=== PATIENT | female | born 1990 | race Caucasian/White ===

== ENCOUNTER 2017-11-11 11:27 | Day surgery (SDC) | payer OTHER ==
[2017-11-11] MEDS: NS 1,000 ML IV (11:41)
[2017-11-11] MEDS ORDERED: fentaNYL 100 MCG/2 ML INJECTION (J3010) As Ordered (12:37)
[2017-11-11] MEDS ORDERED: PROPOFOL 200 MG/20 ML VIAL As Ordered (12:43)
[2017-11-11] MEDS ORDERED: LIDOCAINE 2% INJ 100 MG/5 ML SDV (FOR ANES.) As Ordered (12:44)
== END 2017-11-11 13:24 | disposition home or self-care (01) ==
LOC: M OPP 11:27
DX: K21.9 Gastro-esophageal reflux disease without esophagitis (principal); R10.13 Epigastric pain; K22.8 Other specified diseases of esophagus; K44.9 Diaphragmatic hernia without obstruction or gangrene; K31.89 Other diseases of stomach and duodenum; D64.9 Anemia, unspecified; G43.909 Migraine, unspecified, not intractable, without status migrainosus; F32.9 Major depressive disorder, single episode, unspecified; F41.9 Anxiety disorder, unspecified; Z88.1 Allergy status to other antibiotic agents; Z79.899 Other long term (current) drug therapy
CPT/HCPCS: 43239

== ENCOUNTER 2018-03-14 11:10 | Emergency (ER) | payer OTHER ==
[2018-03-14] MEDS: LORazepam 2 MG TAB PO (11:53)
[2018-03-14] MEDS: ONDANSETRON 4 MG ORAL DISINTEGRATING TAB (Q0162 PER 1MG) PO (13:11)
[2018-03-14] MEDS: ACETAMINOPHEN TAB 650MG DOSE (2X325MG) PO (13:11)
== END 2018-03-14 13:30 | disposition home or self-care (01) ==
LOC: M ED 11:10
DX: F41.9 Anxiety disorder, unspecified (principal); F32.9 Major depressive disorder, single episode, unspecified; Z79.899 Other long term (current) drug therapy; Z88.1 Allergy status to other antibiotic agents
CPT/HCPCS: Q0162

== ENCOUNTER 2018-03-18 15:31 | Emergency (ER) | payer OTHER ==
[2018-03-18] MEDS: METOCLOPRAMIDE 10 MG TAB PO (17:34)
[2018-03-18] MEDS: ALPRAZolam 0.5 MG TAB PO (17:37)
== END 2018-03-18 19:29 | disposition home or self-care (01) ==
LOC: M ED 15:31
DX: F41.1 Generalized anxiety disorder (principal); Z88.1 Allergy status to other antibiotic agents; Z79.899 Other long term (current) drug therapy
CPT/HCPCS: 99283

== ENCOUNTER 2018-07-17 09:41 | Emergency (ER) | payer OTHER ==
[2018-07-17] MEDS: METOCLOPRAMIDE INJ 10MG/2ML VIAL (J2765) IV (10:44)
[2018-07-17] MEDS: NS 1,000 ML IV (10:44)
[2018-07-17] MEDS: MORPHINE 4 MG/ML 1ML VIAL/SYRINGE (J2270) IV (10:46)
[2018-07-17 10:54] LABS: HEMATOCRIT 31.7 % (36.0-47.0); HEMOGLOBIN 9.9 g/dl (12.0-15.5); MEAN CORPUSCULAR HEMOGLOBIN 23.6 pg (27.0-33.0); MEAN CORPUSCULAR HGB CONC 31.2 g/dl (32.0-36.5); MEAN CORPUSCULAR VOLUME 75.5 fl (80.0-96.0); PLATELET COUNT, AUTOMATED 383 10^3/uL (150-450); RED CELL DISTRIBUTION WIDTH 14.9 % (11.5-14.5); WHITE BLOOD COUNT 10.7 10^3/uL (4.0-10.0)
[2018-07-17] MEDS: HYDROMORPHONE HCL 0.5 MG/ 0.5 ML SYRINGE (J1170 PER 1) IV ×2 (11:18→13:30)
[2018-07-17 11:23] LABS: ANION GAP 6 MEQ/L (8-16); BLOOD UREA NITROGEN 8 MG/DL (7-18); CALCIUM LEVEL 8.8 MG/DL (8.5-10.1); CARBON DIOXIDE LEVEL 30 MEQ/L (21-32); CHLORIDE LEVEL 103 MEQ/L (98-107); CREATININE FOR GFR 0.78 MG/DL (0.55-1.30); GLOMERULAR FILTRATION RATE > 60.0 (>60); GLUCOSE, FASTING 82 MG/DL (70-100); POTASSIUM SERUM 3.9 MEQ/L (3.5-5.1); SODIUM LEVEL 139 MEQ/L (136-145)
[2018-07-17] MEDS ORDERED: ISOVUE-370 76% 100ML VIAL (Q9967) As Ordered (11:29)
[2018-07-17] MEDS: AMPICILLIN SOD/SULBACTAM SOD 3 GM in D5W MINI-BAG PLUS 100 ML IV (12:45)
== END 2018-07-17 14:16 | disposition home or self-care (01) ==
LOC: M ED 09:41
DX: K04.7 Periapical abscess without sinus (principal); Z79.899 Other long term (current) drug therapy; Z88.1 Allergy status to other antibiotic agents
CPT/HCPCS: J2270

== ENCOUNTER → 2018-11-25 | Outpatient (REF) | payer OTHER ==
[~2018-11-25] MED LIST: AUGM875T28 PO; BUSP15TA47 PO; OMEP40CA2 PO; PANT40TA3; PENI500T PO; PERC5TAB12 PO; TRAZ-163 PO; XANA0.25 PO; ZOLO25TA PO
[2018-11-25 12:30] LABS: FREE T4 1.67 NG/DL (0.76-1.46); THYROID STIMULATING HORMONE 0.006 uIU/ML (0.358-3.740); TOTAL T3 179.3 NG/DL (60.0-181.0)
== END ==
LOC: M LABDRAW1 11:43
PROVIDERS: ATTEND Nurse Practitioner Family
DX: E05.00 Thyrotoxicosis with diffuse goiter without thyrotoxic crisis or storm (principal)

== ENCOUNTER → 2018-12-17 | Outpatient (CLI) | payer OTHER ==
--- NOTE | 2018-12-18 18:48 | REP ---
Radionuclide thyroid scan: The thyroid right lobe measures 5.3 cm craniocaudad and is enlarged. The thyroid left lobe measures 4.18 cm craniocaudad and is upper normal size. There are no focal hot or cold foci . Thyroid uptake: The 24 are thyroid uptake is 36.87%. An normal 24 uptake is 25% - 35%. Electronically Signed by Chaz Hamm MD 12/18/2018 06:40 P
== END ==
LOC: M RAD 12:51
PROVIDERS: ATTEND Nurse Practitioner Family
DX: E05.00 Thyrotoxicosis with diffuse goiter without thyrotoxic crisis or storm (principal)

== ENCOUNTER 2018-12-28 12:32 | Day surgery (SDC) | payer OTHER ==
[~2018-12-28] VITALS: Ht 10.2 cm; Wt 122.5 kg
[2018-12-28] MEDS ORDERED: LIDOCAINE 2% INJ 100 MG/5 ML SDV (FOR ANES.) As Ordered ONE ×2 (12:53→13:37)
[2018-12-28] MEDS ORDERED: PROPOFOL 200 MG/20 ML VIAL As Ordered ONE ×2 (12:53→13:37)
[2018-12-28] MEDS ORDERED: NS 1,000 ML IV ONE (13:00)
--- NOTE | 2018-12-28 13:50 | ROOR ---
Patient Name: Nicki Zuniga Procedure Date: 12/28/2018 1:17 PM Date of : 1990 Age: 28 Room: [facility] Gender: Female Note Status: Finalized Procedure: Upper GI endoscopy Indications: Surveillance for malignancy due to personal history of Kc's esophagus Providers: Zachariah Arce MD Referring MD: ALLYN MORELAND MD Requesting Provider: Medicines: Monitored Anesthesia Care Complications: No immediate complications. Procedure: Pre-Anesthesia Assessment: - Prior to the procedure, a History and Physical was performed, and patient medications and allergies were reviewed. The patient is competent. The risks and benefits of the procedure and the sedation options and risks were discussed with the patient. All questions were answered and informed consent was obtained. Patient identification and proposed procedure were verified by the physician, the nurse and the anesthesiologist in the procedure room. Mental Status Examination: alert and oriented. Airway Examination: normal oropharyngeal airway and neck mobility. Respiratory Examination: clear to auscultation. CV Examination: normal. Prophylactic Antibiotics: The patient does not require prophylactic antibiotics. Prior Anticoagulants: The patient has taken no previous anticoagulant or antiplatelet agents. ASA Grade Assessment: III - A patient with severe systemic disease. After reviewing the risks and benefits, the patient was deemed in satisfactory condition to undergo the procedure. The anesthesia plan was to use monitored anesthesia care (MAC). Immediately prior to administration of medications, the patient was re-assessed for adequacy to receive sedatives. The heart rate, respiratory rate, oxygen saturations, blood pressure, adequacy of pulmonary ventilation, and response to care were monitored throughout the procedure. The physical status of the patient was re-assessed after the procedure. The Endoscope was introduced through the mouth, and advanced to the second part of duodenum. The upper GI endoscopy was accomplished without difficulty. The patient tolerated the procedure well. Findings: The esophagus and gastroesophageal junction were examined with white light from a forward view and retroflexed position. There were esophageal mucosal changes consistent with short-segment Kc's esophagus. These changes involved the mucosa at the upper extent of the gastric folds (35 cm from the incisors) extending to the Z-line (33 cm from the incisors). Three tongues of salmon-colored mucosa were present from 33 to 35 cm. The maximum longitudinal extent of these esophageal mucosal changes was 2 cm in length. Mucosa was biopsied with a cold forceps for histology in 4 quadrants at intervals of 1 cm in the lower third of the esophagus. One specimen bottle was sent to pathology. Verification of patient identification for the specimen was done by the physician and nurse using the patient's name, date and medical record number. Estimated blood loss was minimal. A medium-sized hiatal hernia was present. No gross lesions were noted in the entire examined stomach. The duodenal bulb and second portion of the duodenum were normal. Impression: - Esophageal mucosal changes consistent with short-segment Kc's esophagus. Biopsied. - Medium-sized hiatal hernia. - No gross lesions in the stomach. - Normal duodenal bulb and second portion of the duodenum. Recommendation: - Patient has a contact number available for emergencies. The signs and symptoms of potential delayed complications were discussed with the patient. Return to normal activities tomorrow. Written discharge instructions were provided to the patient. - Resume previous diet. - Continue present medications. - Await pathology results. - Follow an antireflux regimen. - Refer to a surgeon at appointment to be scheduled. - Based on the biopsy results you will receive a phone call from GI clinic in 2-3 weeks to review the pathology results AND/OR your results will be faxed to your Primary care physician. - Return to primary care physician. Zachariah Arce MD Zachariah Arce MD 12/28/2018 1:50:02 PM This report has been signed electronically. Number of Addenda: 0 Note Initiated On: 12/28/2018 1:17 PM Estimated Blood Loss: Estimated blood loss was minimal.
[2018-12-28 14:00] VITALS: BP 127/72
== END 2018-12-28 14:13 | disposition home or self-care (01) ==
LOC: M OPP 12:32
PROVIDERS: ATTEND Internal Medicine Gastroenterology
DX: K22.70 Barrett's esophagus without dysplasia (principal); K44.9 Diaphragmatic hernia without obstruction or gangrene; G47.30 Sleep apnea, unspecified; Z79.899 Other long term (current) drug therapy; Z91.040 Latex allergy status; Z91.018 Allergy to other foods; Z91.048 Other nonmedicinal substance allergy status

== ENCOUNTER 2019-01-13 09:18 | Emergency (ER) | payer OTHER ==
[~2019-01-13] VITALS: Ht 162.6 cm; Wt 120.5 kg
[2019-01-13] MEDS ORDERED: POLY2.5S OP (10:33)
[2019-01-13 10:44] VITALS: BP 124/63
== END 2019-01-13 10:45 | disposition home or self-care (01) ==
LOC: M ED 09:18
DX: H10.022 Other mucopurulent conjunctivitis, left eye (principal); Z79.899 Other long term (current) drug therapy; Z88.1 Allergy status to other antibiotic agents; Z91.018 Allergy to other foods; Z91.040 Latex allergy status; Z91.048 Other nonmedicinal substance allergy status

== ENCOUNTER → 2019-05-11 | Outpatient (REF) | payer OTHER ==
[~2019-05-11] MED LIST changes: +LEVO2TA; +MULTTAB20 PO; -OMEP40CA2 PO; +OMEP40CA97 PO; +ONDA4TAB6 PO; +POLY2.5S OP; +REGL10TA6 PO; +SYNT25TA; -TRAZ-163 PO; +TRAZ-257 PO
[2019-05-11 12:19] LABS: CALCIUM LEVEL 8.6 MG/DL (8.5-10.1); FREE T4 0.9 NG/DL (0.76-1.46); THYROID STIMULATING HORMONE 4.4 uIU/ML (0.358-3.740)
== END ==
LOC: M LABDRAW1 10:03
PROVIDERS: ATTEND Nurse Practitioner Family
DX: E89.0 Postprocedural hypothyroidism (principal); E83.51 Hypocalcemia

== ENCOUNTER → 2019-07-13 | Outpatient (REF) | payer OTHER ==
[~2019-07-13] MED LIST changes: -MULTTAB20 PO; +OMEP40CA2 PO; -OMEP40CA97 PO; -ONDA4TAB6 PO; -REGL10TA6 PO; -SYNT25TA; +TRAZ-163 PO; -TRAZ-257 PO
[2019-07-13 17:17] LABS: FREE T4 1.01 NG/DL (0.76-1.46); THYROID STIMULATING HORMONE 19.8 uIU/ML (0.358-3.740)
== END ==
LOC: M LABDRAW1 14:32
PROVIDERS: ATTEND Nurse Practitioner Family
DX: E89.0 Postprocedural hypothyroidism (principal)

== ENCOUNTER 2019-07-19 11:57 | Emergency (ER) | payer OTHER ==
[~2019-07-19] VITALS: Ht 162.6 cm; Wt 124.6 kg
[~2019-07-19 11:57] MED LIST changes: -LEVO2TA
[2019-07-19 11:58] VITALS: BP 161/100
[2019-07-19] MEDS ORDERED: LEVO2TA (12:05)
== END 2019-07-19 13:17 | disposition left against medical advice (07) ==
LOC: M ED 11:57
DX: Z53.29 Procedure and treatment not carried out because of patient's decision for other reasons (principal)

== ENCOUNTER → 2019-09-13 | Outpatient (REF) | payer OTHER ==
[~2019-09-13] MED LIST changes: +LEVO2TA; -OMEP40CA2 PO; +OMEP40CA97 PO
[2019-09-13 12:31] LABS: FREE T4 0.85 NG/DL (0.76-1.46); THYROID STIMULATING HORMONE 17.1 uIU/ML (0.358-3.740)
== END ==
LOC: M LABDRAW1 11:16
PROVIDERS: ATTEND Nurse Practitioner Family
DX: E89.0 Postprocedural hypothyroidism (principal); E83.51 Hypocalcemia

== ENCOUNTER 2019-09-24 06:22 | Emergency (ER) | payer OTHER ==
[~2019-09-24] VITALS: Ht 162.6 cm; Wt 113.6 kg
[2019-09-24] MEDS ORDERED: MULTTAB20 PO (06:32)
[2019-09-24] MEDS ORDERED: METOCLOPRAMIDE INJ 10MG/2ML VIAL (J2765) IV ONE (06:45)
[2019-09-24] MEDS ORDERED: NS 1,000 ML IV ONE (06:45)
[2019-09-24 07:08] LABS: BASO # 0.1 10^3/uL (0.0-0.2); BASO % 0.5 % (0.0-1.0); EOS % 0.1 % (0.0-3.0); HEMATOCRIT 35.8 % (36.0-47.0); HEMOGLOBIN 11.2 g/dl (12.0-15.5); LYMPH # 3.8 10^3/uL (1.5-5.0); LYMPH % 19.8 % (24.0-44.0); MEAN CORPUSCULAR HEMOGLOBIN 25.7 pg (27.0-33.0); MEAN CORPUSCULAR HGB CONC 31.3 g/dl (32.0-36.5); MEAN CORPUSCULAR VOLUME 82.3 fl (80.0-96.0); MONO # 0.8 10^3/uL (0.0-0.8); MONO % 4.3 % (0.0-5.0); NEUTROPHILS # 14.4 10^3/uL (1.5-8.5); NEUTROPHILS % 74.5 % (36.0-66.0); PLATELET COUNT, AUTOMATED 472 10^3/uL (150-450); RED BLOOD COUNT 4.35 10^6/uL (4.00-5.40); WHITE BLOOD COUNT 19.3 10^3/uL (4.0-10.0)
[2019-09-24 07:32] LABS: BLOOD UREA NITROGEN 10 MG/DL (7-18); CALCIUM LEVEL 9.3 MG/DL (8.5-10.1); CARBON DIOXIDE LEVEL 20 MEQ/L (21-32); CHLORIDE LEVEL 104 MEQ/L (98-107); CREATININE FOR GFR 1.03 MG/DL (0.55-1.30); GLOMERULAR FILTRATION RATE > 60.0 (>60); GLUCOSE, FASTING 153 MG/DL (70-100); POTASSIUM SERUM 3.8 MEQ/L (3.5-5.1); SODIUM LEVEL 136 MEQ/L (136-145)
[2019-09-24] MEDS ORDERED: ACETAMINOPHEN 325 MG TAB PO ONE (08:00)
[2019-09-24] MEDS ORDERED: REGL10TA6 PO (09:07)
[2019-09-24 09:16] VITALS: BP 132/70
== END 2019-09-24 09:19 | disposition home or self-care (01) ==
LOC: M ED 06:22
DX: O99.89 Other specified diseases and conditions complicating pregnancy, childbirth and the puerperium (principal); G43.909 Migraine, unspecified, not intractable, without status migrainosus; Z3A.01 Less than 8 weeks gestation of pregnancy; Z79.899 Other long term (current) drug therapy; Z88.1 Allergy status to other antibiotic agents; Z88.8 Allergy status to other drugs, medicaments and biological substances; Z91.018 Allergy to other foods; Z91.040 Latex allergy status; Z91.048 Other nonmedicinal substance allergy status
CPT/HCPCS: 80048; 85025; 96361; 96374; 99284; J2765

== ENCOUNTER 2019-10-04 08:46 | Emergency (ER) | payer OTHER ==
[~2019-10-04] VITALS: Ht 162.6 cm; Wt 122.7 kg
[~2019-10-04 08:46] MED LIST changes: +MULTTAB20 PO; +REGL10TA6 PO
[2019-10-04] MEDS ORDERED: SYNT25TA (08:52)
[2019-10-04] MEDS ORDERED: METOCLOPRAMIDE INJ 10MG/2ML VIAL (J2765) IV ONE (09:15)
[2019-10-04] MEDS ORDERED: NS 1,000 ML IV ONE (09:15)
[2019-10-04 10:04] LABS: BLOOD UREA NITROGEN 7 MG/DL (7-18); CALCIUM LEVEL 9.1 MG/DL (8.5-10.1); CARBON DIOXIDE LEVEL 22 MEQ/L (21-32); CHLORIDE LEVEL 106 MEQ/L (98-107); CREATININE FOR GFR 0.86 MG/DL (0.55-1.30); GLOMERULAR FILTRATION RATE > 60.0 (>60); GLUCOSE, FASTING 100 MG/DL (70-100); POTASSIUM SERUM 4.2 MEQ/L (3.5-5.1); SODIUM LEVEL 137 MEQ/L (136-145)
--- NOTE | 2019-10-04 10:35 | REP ---
Emergency first trimester obstetric sonography: History: Abdominal pain and vomiting. 7 weeks 2 days by dates. Findings: Transabdominal scanning is performed. A single living intrauterine gestation is seen in a free-floating lie. Embryonic pole is 9 mm. This corresponds with a gestational age estimate of 6 weeks 6 days. heart rate is documented at 133 beats per minute. No subchorionic hemorrhage is appreciated. There is a cyst in the maternal right ovary consistent with corpus luteum. This measures 2.1 cm. No other finding. Impression: Viable single intrauterine gestation at 6 weeks 6 days by crown-rump length. RAMA by sonography May 23, 2020. No complication is seen. Electronically Signed by Arian Celis MD 10/04/2019 10:26 A
[2019-10-04] MEDS ORDERED: ONDA4TAB6 PO (11:42)
[2019-10-04 11:58] VITALS: BP 162/86
== END 2019-10-04 11:59 | disposition home or self-care (01) ==
LOC: M ED 08:46
DX: O21.0 Mild hyperemesis gravidarum (principal); Z3A.01 Less than 8 weeks gestation of pregnancy; O99.341 Other mental disorders complicating pregnancy, first trimester; F33.9 Major depressive disorder, recurrent, unspecified; F41.9 Anxiety disorder, unspecified; O99.611 Diseases of the digestive system complicating pregnancy, first trimester; K21.9 Gastro-esophageal reflux disease without esophagitis; O99.351 Diseases of the nervous system complicating pregnancy, first trimester; G43.909 Migraine, unspecified, not intractable, without status migrainosus; Z79.899 Other long term (current) drug therapy; Z79.890 Hormone replacement therapy; Z88.1 Allergy status to other antibiotic agents; Z88.8 Allergy status to other drugs, medicaments and biological substances; Z91.018 Allergy to other foods; Z91.040 Latex allergy status; Z91.048 Other nonmedicinal substance allergy status
CPT/HCPCS: 36415; 76801; 80048; 81001; 87086; 93976; 96361; 96374; 99284; J2765

== ENCOUNTER → 2019-10-11 | Outpatient (REF) | payer OTHER ==
[~2019-10-11] MED LIST changes: +ONDA4TAB6 PO; +SYNT25TA
[2019-10-11 17:52] LABS: FREE T4 0.61 NG/DL (0.76-1.46); THYROID STIMULATING HORMONE 42.7 uIU/ML (0.358-3.740)
== END ==
LOC: M LABDRAW1 15:24
PROVIDERS: ATTEND Nurse Practitioner Family
DX: E89.0 Postprocedural hypothyroidism (principal)

== ENCOUNTER 2019-10-31 08:07 | Emergency (ER) | payer OTHER ==
[~2019-10-31] VITALS: Ht 162.6 cm; Wt 120.1 kg
[~2019-10-31 08:07] MED LIST changes: -TRAZ-163 PO; +TRAZ-257 PO
[2019-10-31 09:02] LABS: BASO # 0.1 10^3/uL (0.0-0.2); BASO % 0.4 % (0.0-1.0); EOS % 0.1 % (0.0-3.0); HEMATOCRIT 32.7 % (36.0-47.0); HEMOGLOBIN 10.9 g/dl (12.0-15.5); LYMPH # 1.7 10^3/uL (1.5-5.0); LYMPH % 13.1 % (24.0-44.0); MEAN CORPUSCULAR HEMOGLOBIN 26.6 pg (27.0-33.0); MEAN CORPUSCULAR HGB CONC 33.3 g/dl (32.0-36.5); MEAN CORPUSCULAR VOLUME 79.8 fl (80.0-96.0); MONO # 0.5 10^3/uL (0.0-0.8); MONO % 3.7 % (0.0-5.0); NEUTROPHILS % 82.4 % (36.0-66.0); PLATELET COUNT, AUTOMATED 419 10^3/uL (150-450); WHITE BLOOD COUNT 13.3 10^3/uL (4.0-10.0)
[2019-10-31] MEDS ORDERED: ONDANSETRON 4MG/2ML VIAL (J2405) IV ONE ×2 (09:15→12:30)
[2019-10-31] MEDS ORDERED: CALCIUM CARBONATE 500 MG CHEW U/D PO ONE (09:15)
[2019-10-31 09:25] LABS: BLOOD UREA NITROGEN 3 MG/DL (7-18); CALCIUM LEVEL 9.1 MG/DL (8.5-10.1); CARBON DIOXIDE LEVEL 21 MEQ/L (21-32); CHLORIDE LEVEL 103 MEQ/L (98-107); CREATININE FOR GFR 0.78 MG/DL (0.55-1.30); GLOMERULAR FILTRATION RATE > 60.0 (>60); GLUCOSE, FASTING 109 MG/DL (70-100); POTASSIUM SERUM 3.4 MEQ/L (3.5-5.1); SODIUM LEVEL 135 MEQ/L (136-145)
[2019-10-31 09:47] LABS: ALBUMIN 3.9 GM/DL (3.2-5.2); BILIRUBIN,DIRECT 0.1 MG/DL (0.0-0.2); BILIRUBIN,TOTAL 0.4 MG/DL (0.2-1.0); TOTAL PROTEIN 8.1 GM/DL (6.4-8.2)
[2019-10-31 10:14] LABS: FREE T4 0.44 NG/DL (0.76-1.46)
[2019-10-31] MEDS ORDERED: REGL10TA6 PO (12:26)
[2019-10-31] MEDS ORDERED: ONDA4TAB6 PO (12:26)
[2019-10-31] MEDS ORDERED: ACETAMINOPHEN TAB 650MG DOSE (2X325MG) PO ONE (12:30)
[2019-10-31 13:34] VITALS: BP 133/75
== END 2019-10-31 13:00 | disposition home or self-care (01) ==
LOC: M ED 08:07
DX: O21.0 Mild hyperemesis gravidarum (principal); O99.281 Endocrine, nutritional and metabolic diseases complicating pregnancy, first trimester; E03.9 Hypothyroidism, unspecified; O99.611 Diseases of the digestive system complicating pregnancy, first trimester; K21.9 Gastro-esophageal reflux disease without esophagitis; Z79.899 Other long term (current) drug therapy; Z79.890 Hormone replacement therapy; Z88.1 Allergy status to other antibiotic agents; Z88.8 Allergy status to other drugs, medicaments and biological substances; Z91.018 Allergy to other foods; Z91.040 Latex allergy status; Z91.048 Other nonmedicinal substance allergy status; Z3A.11 11 weeks gestation of pregnancy
CPT/HCPCS: 80048; 80076; 82150; 83690; 84439; 84443; 84702; 85025; 93041; 96374; 96376; 99284; J2405

== ENCOUNTER → 2019-11-23 | Outpatient (REF) | payer OTHER ==
[2019-11-23 18:36] LABS: FREE T3 1.4 PG/ML (2.2-4.0); FREE T4 0.63 NG/DL (0.76-1.46); THYROID STIMULATING HORMONE 79.4 uIU/ML (0.358-3.740)
[2019-11-23 18:40] LABS: THYROID PEROXIDASE ANTIBODY 149.9 U/ML (<60.0)
== END ==
LOC: M LABDRAW1 17:42
PROVIDERS: ATTEND Obstetrics & Gynecology
DX: E03.8 Other specified hypothyroidism (principal); E89.0 Postprocedural hypothyroidism

== ENCOUNTER 2019-12-06 23:01 | Emergency (ER) | payer OTHER ==
[~2019-12-06] VITALS: Ht 162.6 cm; Wt 115.1 kg
[2019-12-07] MEDS ORDERED: NS 1,000 ML IV ONE (00:30)
[2019-12-07 00:45] LABS: BASO % 0.3 % (0.0-1.0); EOS % 0.3 % (0.0-3.0); HEMATOCRIT 32.9 % (36.0-47.0); HEMOGLOBIN 10.6 g/dl (12.0-15.5); LYMPH # 2.2 10^3/uL (1.5-5.0); MEAN CORPUSCULAR HEMOGLOBIN 26.6 pg (27.0-33.0); MEAN CORPUSCULAR HGB CONC 32.2 g/dl (32.0-36.5); MEAN CORPUSCULAR VOLUME 82.7 fl (80.0-96.0); MONO # 0.7 10^3/uL (0.0-0.8); MONO % 5.1 % (0.0-5.0); NEUTROPHILS # 10.6 10^3/uL (1.5-8.5); NEUTROPHILS % 77.9 % (36.0-66.0); PLATELET COUNT, AUTOMATED 341 10^3/uL (150-450); RED BLOOD COUNT 3.98 10^6/uL (4.00-5.40); WHITE BLOOD COUNT 13.6 10^3/uL (4.0-10.0)
[2019-12-07 00:53] LABS: APPEARANCE, URINE CLOUDY (CLEAR); BACTERIA, URINE AUTO 1+ (NEGATIVE); BILIRUBIN, URINE AUTO NEGATIVE (NEGATIVE); BLOOD, URINE BLOOD NEGATIVE (NEGATIVE); COLOR, URINE YELLOW (YELLOW); GLUCOSE, URINE (UA) AUTO 1+ mg/dL (NEGATIVE); KETONE, URINE AUTO 1+ mg/dL (NEGATIVE); LEUKOCYTE ESTERASE, URINE AUTO 1+ (NEGATIVE); MUCUS, URINE MODERATE (NEGATIVE); NITRITE, URINE AUTO NEGATIVE (NEGATIVE); PROTEIN, URINE AUTO 2+ mg/dL (NEGATIVE); RBC, URINE AUTO 8 /HPF (0-3); SPECIFIC GRAVITY URINE AUTO 1.026 (1.002-1.035); SQUAMOUS EPITHELIAL CELL UR AU 18 /HPF (0-6); UROBILINOGEN, URINE AUTO 0.2 mg/dL (0.0-2.0); WBC, URINE AUTO 23 /HPF (0-3)
[2019-12-07] MEDS ORDERED: ACETAMINOPHEN 325 MG TAB PO ONE (01:30)
[2019-12-07] MEDS ORDERED: METOCLOPRAMIDE INJ 10MG/2ML VIAL (J2765) IV ONE (01:30)
[2019-12-07 02:30] VITALS: BP 134/75
== END 2019-12-07 02:31 | disposition home or self-care (01) ==
LOC: M ED 23:01
DX: O26.892 Other specified pregnancy related conditions, second trimester (principal); R51 Headache; O99.612 Diseases of the digestive system complicating pregnancy, second trimester; K21.9 Gastro-esophageal reflux disease without esophagitis; Z3A.17 17 weeks gestation of pregnancy; Z88.1 Allergy status to other antibiotic agents; Z91.040 Latex allergy status; Z91.018 Allergy to other foods; Z91.048 Other nonmedicinal substance allergy status
CPT/HCPCS: 80047; 81001; 85025; 96361; 96374; 99284; J2765

== ENCOUNTER → 2019-12-20 | Outpatient (CLI) | payer OTHER ==
--- NOTE | 2019-12-20 10:50 | REP ---
OBSTETRIC SONOGRAPHY: HISTORY: Supervision of high risk . FINDINGS: Scanning through the gravid uterus demonstrates a viable single intrauterine gestation in a transverse lie, head to the maternal right. motion is observed and heart rate is recorded at 150 beats per minute. A fundal grade 0 placenta is seen without evidence of previa. Amniotic fluid is subjectively normal. Closed cervical length measured transabdominally is 4.0 cm. No extrauterine abnormalities observed. There has been appropriate interval growth. Exam quality was inhibited some degree by maternal body habitus and position. No definite abnormality. Question bilateral choroid plexus cysts. face and spine are less than optimally seen. Left ventricular and right ventricular cardiac outflow tract views are less than optimally achieved. Cerebellum posterior fossa is less than optimally seen. The following additional anatomic structures are identified and felt to be sonographically unremarkable: cranium, cavum, lungs, four-chamber heart, diaphragm, left-sided stomach, abdominal wall cord insertion, three-vessel cord, kidneys and bladder, upper and lower extremities. Biometry Chart: BPD 4.3 cm = 19 weeks 0 days HC 15.8 cm = 18 weeks 5 days AC 13.2 cm = 18 weeks 5 days FL 2.9 cm = 18 weeks 6 days HL 2.7 cm = 18 weeks 5 days HC/AC ratio normal 1.19 Cephalic index normal 0.76. Estimated weight 258 grams, 0 pounds 9 ounces, 66th percentile for 18 weeks 2 days. IMPRESSION: Viable single intrauterine gestation at 18 weeks 6 days based on today's sonographic criteria. Expected gestational age estimate based on prior sonography 17-week 6 days. RAMA by prior sonography May 23, 2020. anatomic survey is less than complete. Transverse lie. Question bilateral choroid plexus cysts. Electronically Signed by Arian Celis MD 12/20/2019 03:51 P
== END ==
LOC: M RAD 09:36
PROVIDERS: ATTEND Obstetrics & Gynecology
DX: O09.92 Supervision of high risk pregnancy, unspecified, second trimester (principal); Z3A.19 19 weeks gestation of pregnancy

== ENCOUNTER → 2019-12-21 | Outpatient (REF) | payer OTHER ==
[2019-12-21 15:55] LABS: FREE T4 0.75 NG/DL (0.76-1.46); THYROID STIMULATING HORMONE 58.8 uIU/ML (0.358-3.740)
== END ==
LOC: M LABDRAW1 13:06
PROVIDERS: ATTEND Nurse Practitioner Family
DX: E89.0 Postprocedural hypothyroidism (principal)

== ENCOUNTER 2020-01-30 17:32 | Emergency (ER) | payer OTHER ==
[~2020-01-30] VITALS: Ht 165.1 cm; Wt 114.0 kg
[2020-01-30] MEDS ORDERED: ERYT-52 (17:45)
[2020-01-30] MEDS ORDERED: OXYC1TAB23 (17:45)
[2020-01-30] MEDS ORDERED: LEVO125T4 (17:45)
[2020-01-30] MEDS ORDERED: BENZOCAINE 20% GEL 9GM TUBE (ANBESOL MAX STRENGTH) TOP ONE (18:00)
[2020-01-30 18:40] LABS: AMORPHOUS SEDIMENT SMALL (NEGATIVE); APPEARANCE, URINE HAZY (CLEAR); BACTERIA, URINE AUTO 1+ (NEGATIVE); BILIRUBIN, URINE AUTO NEGATIVE (NEGATIVE); BLOOD, URINE BLOOD 1+ (NEGATIVE); COLOR, URINE YELLOW (YELLOW); GLUCOSE, URINE (UA) AUTO NEGATIVE (NEGATIVE); KETONE, URINE AUTO TRACE mg/dL (NEGATIVE); LEUKOCYTE ESTERASE, URINE AUTO NEGATIVE (NEGATIVE); MUCUS, URINE SMALL (NEGATIVE); NITRITE, URINE AUTO NEGATIVE (NEGATIVE); PROTEIN, URINE AUTO 1+ mg/dL (NEGATIVE); RBC, URINE AUTO 7 /HPF (0-3); SPECIFIC GRAVITY URINE AUTO 1.023 (1.002-1.035); SQUAMOUS EPITHELIAL CELL UR AU 3 /HPF (0-6); WBC, URINE AUTO 3 /HPF (0-3)
[2020-01-30 18:45] LABS: BASO # 0.1 10^3/uL (0.0-0.2); BASO % 0.4 % (0.0-1.0); EOS # 0.1 10^3/uL (0.0-0.5); EOS % 0.7 % (0.0-3.0); HEMATOCRIT 31.1 % (36.0-47.0); HEMOGLOBIN 10.3 g/dl (12.0-15.5); LYMPH # 3.1 10^3/uL (1.5-5.0); LYMPH % 18.5 % (24.0-44.0); MEAN CORPUSCULAR HEMOGLOBIN 28.3 pg (27.0-33.0); MEAN CORPUSCULAR HGB CONC 33.1 g/dl (32.0-36.5); MEAN CORPUSCULAR VOLUME 85.4 fl (80.0-96.0); MONO % 6.2 % (0.0-5.0); NEUTROPHILS # 12.1 10^3/uL (1.5-8.5); NEUTROPHILS % 73.4 % (36.0-66.0); PLATELET COUNT, AUTOMATED 463 10^3/uL (150-450); RED BLOOD COUNT 3.64 10^6/uL (4.00-5.40); WHITE BLOOD COUNT 16.5 10^3/uL (4.0-10.0)
[2020-01-30 19:02] LABS: ALBUMIN 3.5 GM/DL (3.2-5.2); ALT/SGPT 13 U/L (12-78); BILIRUBIN,DIRECT < 0.1 MG/DL (0.0-0.2); BILIRUBIN,TOTAL 0.2 MG/DL (0.2-1.0); BLOOD UREA NITROGEN 5 MG/DL (7-18); CALCIUM LEVEL 9.3 MG/DL (8.5-10.1); CARBON DIOXIDE LEVEL 25 MEQ/L (21-32); CHLORIDE LEVEL 101 MEQ/L (98-107); CREATININE FOR GFR 0.78 MG/DL (0.55-1.30); GLOMERULAR FILTRATION RATE > 60.0 (>60); GLUCOSE, FASTING 84 MG/DL (70-100); POTASSIUM SERUM 3.6 MEQ/L (3.5-5.1); SODIUM LEVEL 133 MEQ/L (136-145); TOTAL PROTEIN 8.3 GM/DL (6.4-8.2)
[2020-01-30] MEDS ORDERED: CEPHALEXIN 500 MG CAP PO ONE (19:15)
[2020-01-30] MEDS ORDERED: VANCOMYCIN HCL 1,000 MG, VIAL MATE ADAPTER 1 EACH in D5W 250 ML IV ONE (19:30)
[2020-01-30] MEDS ORDERED: MORPHINE 2 MG/ML 1ML VIAL (J2270) IV ONE ×2 (19:30→20:15)
[2020-01-30] MEDS ORDERED: diphenhydrAMINE INJ 50MG/ML VIAL (J1200) IV STA (20:22)
[2020-01-30] MEDS ORDERED: NS 250 ML IV SCH (20:30)
[2020-01-30 20:38] VITALS: BP 137/80
[2020-01-30] MEDS ORDERED: OXYCODONE/APAP 5MG/325MG(BULK FOR ED) 1 TABLET PO ONE (21:00)
== END 2020-01-30 21:12 | disposition home or self-care (01) ==
LOC: M ED 17:32
DX: O99.612 Diseases of the digestive system complicating pregnancy, second trimester (principal); K04.7 Periapical abscess without sinus; O26.892 Other specified pregnancy related conditions, second trimester; R03.0 Elevated blood-pressure reading, without diagnosis of hypertension; O12.12 Gestational proteinuria, second trimester; Z3A.25 25 weeks gestation of pregnancy; Z88.1 Allergy status to other antibiotic agents; Z88.6 Allergy status to analgesic agent; Z91.018 Allergy to other foods; Z91.040 Latex allergy status; Z79.899 Other long term (current) drug therapy
CPT/HCPCS: 80048; 80076; 81001; 85025; 87086; 96361; 96365; 96375; 96376; 99284; J1200; J2270; J3370

== ENCOUNTER → 2020-02-03 | Outpatient (REF) | payer OTHER ==
[~2020-02-03] MED LIST changes: +ERYT-52; +LEVO125T4; +OXYC1TAB23
[2020-02-03 14:19] LABS: FREE T4 0.54 NG/DL (0.76-1.46); THYROID STIMULATING HORMONE 69.7 uIU/ML (0.358-3.740)
== END ==
LOC: M LABDRAW1 13:07
PROVIDERS: ATTEND Nurse Practitioner Family
DX: E89.0 Postprocedural hypothyroidism (principal)

== ENCOUNTER → 2020-02-04 | Outpatient (CLI) | payer OTHER ==
--- NOTE | 2020-02-04 15:44 | REP ---
REASON: Followup anatomy. COMPARISON: 12/20/2009. Suboptimally visualized facial features, spine, cerebellum, and ventricular outflow tracts. In addition, There was a question of bilateral choroid plexus cyst. Today's examination shows a single living intrauterine gestation in the cephalic presentation. Doppler interrogation of the heart shows a heart rate of 152 beats per minute. Placenta is posterior and not low lying. The subjective amniotic fluid volume is within normal limits. The cervix measures 5.3 cm in length and is closed. Evaluation of the maternal adnexal spaces showed no abnormalities. BPD 6.4 cm = 26 weeks 0 day HC 23.6 cm = 25 weeks 4 days AC 21.3 cm = 25 weeks 6 days Femur length 4.9 cm = 26 weeks 2 days The estimated weight is 877 grams which is at the 75th percentile for a 24 week 6 day gestational age. The anatomical structures not well seen on the prior exam as described above are all seen to be within normal limits today. IMPRESSION: Single living intrauterine gestation as described above with an estimated gestational age of 26 weeks 0 days via composite criteria and an estimated date of delivery of 05/12/2020 by today's exam. No anomalies were detected. Electronically Signed by Dmitry Dixon DO 02/04/2020 04:16 P
== END ==
LOC: M RAD 13:05
PROVIDERS: ATTEND Obstetrics & Gynecology
DX: O99.283 Endocrine, nutritional and metabolic diseases complicating pregnancy, third trimester (principal); E03.9 Hypothyroidism, unspecified; Z3A.26 26 weeks gestation of pregnancy

== ENCOUNTER → 2020-03-08 | Outpatient (CLI) | payer OTHER ==
[2020-03-08 13:29] LABS: FREE T4 0.7 NG/DL (0.76-1.46); THYROID STIMULATING HORMONE 66.4 uIU/ML (0.358-3.740)
== END ==
LOC: M PLALAB 10:16
PROVIDERS: ATTEND Internal Medicine Endocrinology, Diabetes & Metabolism
DX: E89.0 Postprocedural hypothyroidism (principal)

== ENCOUNTER → 2020-06-26 | Outpatient (CLI) | payer OTHER ==
[~2020-06-26] MED LIST changes: +PANT40TA29; -PANT40TA3
[2020-06-26 18:21] LABS: FREE T4 0.72 NG/DL (0.76-1.46); THYROID STIMULATING HORMONE 51.4 uIU/ML (0.358-3.740)
== END ==
LOC: M PLALAB 15:20
PROVIDERS: ATTEND Internal Medicine Endocrinology, Diabetes & Metabolism
DX: O99.282 Endocrine, nutritional and metabolic diseases complicating pregnancy, second trimester (principal); Z3A.22 22 weeks gestation of pregnancy; E89.0 Postprocedural hypothyroidism